=== PATIENT | female | born 1985 | race Caucasian/White ===

== ENCOUNTER → 2020-01-22 | Outpatient (CLI) | payer BC ==
[2020-01-22 18:09] LABS: BASOPHILS ABSOLUTE AUTO 0.03 K/mm3 (0.00-0.23); BASOPHILS PERCENT AUTO 0 % (0-2); EOSINOPHILS ABSOLUTE AUTO 0.12 K/mm3 (0.00-0.68); EOSINOPHILS PERCENT AUTO 1 % (0-6); Hematocrit 43.3 % (33.0-51.0); Hemoglobin 14.3 g/dL (11.5-16.0); IMMATURE GRAN ABSOLUTE AUTO 0.02 K/mm3 (0.00-0.10); IMMATURE GRAN PERCENT AUTO 0 % (0-1); LYMPHOCYTES ABSOLUTE AUTO 2.41 K/mm3 (0.84-5.20); LYMPHOCYTES PERCENT AUTO 21 % (21-46); MONOCYTES ABSOLUTE AUTO 0.85 K/mm3 (0.16-1.47); MONOCYTES PERCENT AUTO 7 % (4-13); Mean Corpuscular HGB 29.5 pg (26.0-34.0); Mean Corpuscular Volume 90 fL (80-100); Mean Platelet Volume 10.2 fL (9.1-12.4); NEUTROPHILS ABSOLUTE AUTO 8.17 K/mm3 (1.96-9.15); NEUTROPHILS PERCENT AUTO 70 % (41-73); Platelet Count 322 K/mm3 (150-400); RDW Coefficient Variation 12.3 % (11.7-14.2); RDW Standard Deviation 40.3 fL (35.1-46.3); Red Blood Cell Count 4.84 M/mm3 (3.80-5.20)
[2020-01-22 18:30] LABS: Alanine Aminotransfer (ALT/SGP 20 U/L (12-78); Albumin, Blood 3.8 g/dL (3.4-5.0); Alk Phos 70 U/L (50-136); Anion Gap 5 mmol/L (6-16); Aspartate Aminotrans (AST/SGOT 17 U/L (12-37); Bilirubin, Total 0.6 mg/dL (0.1-1.0); Blood Urea Nitrogen 10 mg/dL (8-24); Bun/Creatinine Ratio 11.8 (12.0-20.0); CO2, Blood 25 mmol/L (21-32); Calcium, Blood 8.9 mg/dL (8.5-10.1); Chloride, Blood 105 mmol/L (98-108); Creatinine, Blood 0.85 mg/dL (0.40-1.00); Globulin, Blood 3.9 g/dL (2.2-4.0); Glomerular Filtration Rate >60 (60-); Glucose, Blood 83 mg/dL (70-99); Potassium, Blood 3.7 mmol/L (3.5-5.5); Sodium, Blood 135 mmol/L (136-145); Total Protein, Blood 7.7 g/dL (6.4-8.2)
== END | disposition home or self-care (01) ==
LOC: LAB SHORT 16:45 → LAB 16:45 → EDSTATUS 01-21 12:50 → LAB FUT 01-21 12:50
PROVIDERS: Nurse Practitioner Family
DX: R10.9 Unspecified abdominal pain (principal)
CPT/HCPCS: 80053; 83690; 85025

== ENCOUNTER → 2025-04-23 | Outpatient (CLI) | payer OTHER ==
[2025-04-23 14:48] LABS: Source, Urine Clean Catch
[2025-04-23 19:29] LABS: Bilirubin, Urine Neg (Neg); Glucose Qualitative, Urine Neg (Neg); Ketones, Urine Neg (Neg); Leukocyte Esterase, Urine Neg (Neg); Protein, Urine Neg (Neg); Specific Gravity, Urine 1.005 (1.003-1.022); Urobilinogen, Urine NORM (Normal)
[2025-04-23 20:13] LABS: Color, Urine Pale Yellow (P-Yellow)
== END ==
LOC: LAB SHORT 14:32 → LAB 14:32
PROVIDERS: Advanced Practice Midwife
DX: R39.89 Other symptoms and signs involving the genitourinary system (principal)
CPT/HCPCS: 81003

== ENCOUNTER → 2025-07-16 | Outpatient (CLI) | payer OTHER | LOC: LAB SHORT 13:58 → LAB 13:58 | DX: O09.92 Supervision of high risk pregnancy, unspecified, second trimester (principal) | CPT/HCPCS: 87081 ==

== ENCOUNTER 2025-08-05 18:44 | Inpatient (IN) | payer BC, OTHER ==
[~2025-08-05] VITALS: Ht 162.6 cm; Wt 119.5 kg
[~2025-08-05 18:44] MED LIST: Methylergonovine Maleate 0.2MG / ML 1ML Amp IM ONE; Oxytocin 10 Unit / ML Vial IM ONE
[2025-08-05] MEDS ORDERED: ePHEDrine Sulfate 50 MG/ML 1ML Injection XX PRN (19:25)
[2025-08-05] MEDS ORDERED: Tranexamic Acid 100 ML IV SCH (19:25)
[2025-08-05] MEDS ORDERED: Oxytocin 10 Unit / ML Vial IM PRN (19:25)
[2025-08-05] MEDS ORDERED: OXYTOCIN/RINGER'S LACTATE 500 ML IV PRN (19:25)
[2025-08-05] MEDS ORDERED: FentaNYL 2mcg/ml-Bup 0.1% Epd 250 ML EPI PRN (19:25)
[2025-08-05] MEDS ORDERED: FentaNYL Citrate 50 MCG/ML 2 ML Injection IV PRN (19:25)
[2025-08-05] MEDS ORDERED: Ondansetron HCl 2 MG / ML 2ML Vial IV PRN (19:25)
[2025-08-05] MEDS ORDERED: Methylergonovine Maleate 0.2MG / ML 1ML Amp IM PRN (19:25)
[2025-08-05] MEDS ORDERED: Carboprost Tromethamine 250 MCG/ML 1ML Amp IM PRN (19:25)
[2025-08-05 19:42] VITALS: BP 124/75
[2025-08-05 19:50] LABS: BASOPHILS ABSOLUTE AUTO 0.06 K/mm3 (0.00-0.23); BASOPHILS PERCENT AUTO 0 % (0-2); EOSINOPHILS ABSOLUTE AUTO 0.15 K/mm3 (0.00-0.68); EOSINOPHILS PERCENT AUTO 1 % (0-6); Hematocrit 38.5 % (33.0-51.0); Hemoglobin 13.3 g/dL (11.5-16.0); IMMATURE GRAN ABSOLUTE AUTO 0.14 K/mm3 (0.00-0.10); IMMATURE GRAN PERCENT AUTO 1 % (0-1); LYMPHOCYTES ABSOLUTE AUTO 2.40 K/mm3 (0.84-5.20); LYMPHOCYTES PERCENT AUTO 16 % (21-46); MONOCYTES ABSOLUTE AUTO 1.18 K/mm3 (0.16-1.47); MONOCYTES PERCENT AUTO 8 % (4-13); Mean Corpuscular HGB Conc 34.5 g/dL (31.5-36.5); Mean Corpuscular Volume 89 fL (80-100); NEUTROPHILS ABSOLUTE AUTO 11.26 K/mm3 (1.96-9.15); NEUTROPHILS PERCENT AUTO 74 % (41-73); NRBC ABSOLUTE 0.00 K/mm3 (0.00-0.02); NRBC Auto 0.0 /100 WBC (0.0-0.2); Platelet Count 291 K/mm3 (150-400); RDW Coefficient Variation 12.5 % (11.7-14.2); RDW Standard Deviation 40.2 fL (35.1-46.3)
[2025-08-05 23:53] VITALS: BP 115/69
[2025-08-06] VITALS (63 sets, daily range): BP systolic 86–157; BP diastolic 50–102
[2025-08-06] MEDS ORDERED: OXYTOCIN/RINGER'S LACTATE 500 ML IV SCH ×4 (05:15→17:10)
[2025-08-06] MEDS ORDERED: CeFAZolin Sodium 3,000 MG in NS 100 ML IV SCH (14:25)
[2025-08-06] MEDS ORDERED: Citric Acid/Sodium Citrate 30 ML BTL ONE (14:52)
[2025-08-06] MEDS ORDERED: Metoclopramide HCl 5MG / ML 2ML Vial ONE (14:52)
[2025-08-06] MEDS ORDERED: ePHEDrine Sulfate 50 MG/ML 1ML Injection ONE ×2 (15:30→15:34)
[2025-08-06 15:54] LABS: PCO2 Cord - Arterial 43.7 mmHg (40-50); PO2 Cord - Arterial 20.8 mmHg (16-20); pH Cord - Arterial 7.30 (7.28-7.35)
[2025-08-06 15:57] LABS: PCO2 Cord - Venous 44.8 mmHg (40-50); PO2 Cord - Venous 21.4 mmHg (28-32); pH Umbilical Cord - Venous 7.30 (7.26-7.35)
--- NOTE | 2025-08-06 16:00 | NUR ---
08/06/25 1600 Valery Burciaga PT TO OR WITH LOO IN PLACE. DELIVERY OF VIABLE FEMALE AT 1541. PLACENTA DELIVERED MANUALLY, COMPLETE. CORD SEGMENT SENT WITH RT FOR GASSES, CORD BLOOD SAMPLE SENT WITH BABY'S RN.
[2025-08-06] MEDS ORDERED: Ondansetron HCl 2 MG / ML 2ML Vial ONE (16:02)
[2025-08-06] MEDS ORDERED: Dexamethasone Sod Phos 10 MG/ML 1ML VIAL ONE (16:02)
[2025-08-06] MEDS ORDERED: Phenylephrine HCl 100 MCG/ML-NS 10MLSYR (1MG/10ML) ONE (16:02)
--- NOTE | 2025-08-06 16:45 | NUR ---
PT AWAKE AND ALERT. DENIES PAIN. EXCITED TO SEE NB.
[2025-08-06] MEDS ORDERED: Ondansetron HCl 2 MG / ML 2ML Vial IV PRN (17:05)
[2025-08-06] MEDS ORDERED: HYDROmorphone HCl/Pf 1MG SYR IV PRN (17:10)
[2025-08-06] MEDS ORDERED: Rho(D) Immune Globulin 300 MCG / SYR IM ONE (17:10)
[2025-08-06] MEDS ORDERED: Methylergonovine Maleate 0.2MG / ML 1ML Amp IM PRN (17:15)
[2025-08-06] MEDS ORDERED: Carboprost Tromethamine 250 MCG/ML 1ML Amp IM PRN (17:15)
[2025-08-06] MEDS ORDERED: Magnesium Hydroxide Conc 10 ML UDC PO PRN (17:15)
[2025-08-06] MEDS ORDERED: Enoxaparin 40 MG/0.4 ML SYR SC SCH (18:00)
[2025-08-06] MEDS ORDERED: Ketorolac Tromethamine 30mg Vial IV SCH (18:00)
[2025-08-06] MEDS ORDERED: Citric Acid/Sodium Citrate 30 ML BTL PO ONE (18:25)
--- NOTE | 2025-08-06 21:15 | NUR ---
CALL TO REGARDING ORDER FOR LOVENOX AT 1800 THAT WAS NOT GIVEN BY PREVIOUS RN. PER HOLD 1800 DOSE OF LOVENOX AND START GIVING IT DAILY STARTING TOMORROW 08/07/25 AT 0900.
[2025-08-07 03:58] VITALS: BP 132/62
[2025-08-07 05:41] LABS: BASOPHILS ABSOLUTE AUTO 0.03 K/mm3 (0.00-0.23); BASOPHILS PERCENT AUTO 0 % (0-2); EOSINOPHILS ABSOLUTE AUTO 0.00 K/mm3 (0.00-0.68); EOSINOPHILS PERCENT AUTO 0 % (0-6); Hematocrit 29.6 % (33.0-51.0); Hemoglobin 10.4 g/dL (11.5-16.0); IMMATURE GRAN ABSOLUTE AUTO 0.13 K/mm3 (0.00-0.10); IMMATURE GRAN PERCENT AUTO 1 % (0-1); LYMPHOCYTES ABSOLUTE AUTO 1.34 K/mm3 (0.84-5.20); LYMPHOCYTES PERCENT AUTO 6 % (21-46); MONOCYTES ABSOLUTE AUTO 1.63 K/mm3 (0.16-1.47); MONOCYTES PERCENT AUTO 7 % (4-13); Mean Corpuscular HGB Conc 35.1 g/dL (31.5-36.5); Mean Corpuscular Volume 87 fL (80-100); NEUTROPHILS ABSOLUTE AUTO 19.02 K/mm3 (1.96-9.15); NEUTROPHILS PERCENT AUTO 86 % (41-73); NRBC ABSOLUTE 0.00 K/mm3 (0.00-0.02); NRBC Auto 0.0 /100 WBC (0.0-0.2); Platelet Count 230 K/mm3 (150-400); RDW Coefficient Variation 12.5 % (11.7-14.2); RDW Standard Deviation 39.8 fL (35.1-46.3)
[2025-08-07 07:29] VITALS: BP 116/64
[2025-08-07] MEDS ORDERED: Prenatal Vit/FE Fumarate/FA 1 Tab PO SCH (09:00)
[2025-08-07] MEDS ORDERED: Polyethylene Glycol 3350 17 gm PO SCH (09:00)
[2025-08-07] MEDS ORDERED: Ketorolac Tromethamine 30mg Vial IV ONE (09:20)
[2025-08-07 11:59] VITALS: BP 110/70
[2025-08-07 16:02] VITALS: BP 116/59
[2025-08-07 20:01] VITALS: BP 117/63
[2025-08-07 23:52] VITALS: BP 115/66
[2025-08-08] VITALS (11 sets, daily range): BP systolic 98–129; BP diastolic 50–79
[2025-08-08] MEDS ORDERED: IBUP800 PO (12:30)
[2025-08-08] MEDS ORDERED: OXAYDO5 M1 PO (12:31)
--- NOTE | 2025-08-08 15:59 | NUR ---
No acute changes t/o shift. ID bands matched w/nb and verification from. Pt denies additional questions/concerns. Pt d/c'd home ambulatory to care of SO.
== END 2025-08-08 14:00 | disposition home or self-care (01) | DRG 788 ==
LOC: OBS 18:44 → BC 18:44 → OBS 19:26 → BC 19:28
PROVIDERS: Obstetrics & Gynecology; ADMIT Family Medicine
PROC: 4A1H7CZ Monitoring of Products of Conception, Cardiac Rate, Via Natural or Artificial Opening (ICD-10-PCS; 2025-08-06)
PROC: 10H073Z Insertion of Monitoring Electrode into Products of Conception, Via Natural or Artificial Opening (ICD-10-PCS; 2025-08-06)
PROC: 10H07YZ Insertion of Other Device into Products of Conception, Via Natural or Artificial Opening (ICD-10-PCS; 2025-08-06)
PROC: 3E03329 Introduction of Other Anti-infective into Peripheral Vein, Percutaneous Approach (ICD-10-PCS; 2025-08-06)
PROC: 10D00Z1 Extraction of Products of Conception, Low, Open Approach (ICD-10-PCS; principal; 2025-08-06 15:00)
DX: O99.214 Obesity complicating childbirth (principal); Z3A.39 39 weeks gestation of pregnancy; Z37.0 Single live birth; O76 Abnormality in fetal heart rate and rhythm complicating labor and delivery; O99.344 Other mental disorders complicating childbirth; F41.9 Anxiety disorder, unspecified; O26.893 Other specified pregnancy related conditions, third trimester; Z67.41 Type O blood, Rh negative; Z87.891 Personal history of nicotine dependence
CPT/HCPCS: 36415; 51702; 59025; 59070; 81003; 82803; 85025; 86850; 86900; 86901; 86922; 99214; A9270; J0456; J1100; J1650; J1885; J2210; J2371; J2405; J2590; J3010; J7050; J7120